=== PATIENT | male | born 1945 | race Caucasian/White ===

== ENCOUNTER 2017-04-02 22:05 | Inpatient (IN) | payer MEDICARE ==
[~2017-04-02] VITALS: Ht 172.7 cm; Wt 70.2 kg
[2017-04-02 22:52] LABS: BASOPHILS % (AUTO) 0.1 % (0.0-2.0); EOSINOPHILS % (AUTO) 0.1 % (1.0-6.0); HEMATOCRIT 44.8 % (41-53); HEMOGLOBIN 14.9 g/dL (13.5-17.5); LYMPHOCYTES # (AUTO) 0.8 K/uL (1.0-4.8); LYMPHOCYTES % (AUTO) 12.3 % (22.0-44.0); MEAN CORPUSCULAR HEMOGLOBIN 30.2 pg (26.0-34.0); MEAN CORPUSCULAR HGB CONC 33.2 G/dL (31.0-37.0); MEAN CORPUSCULAR VOLUME 91 fL (80-100); MONOCYTES # (AUTO) 0.5 K/uL (0.1-1.0); MONOCYTES % (AUTO) 7.8 % (2.0-9.0); NEUTROPHILS # (AUTO) 5.1 K/uL (1.8-7.7); NEUTROPHILS % (AUTO) 79.7 % (40.0-70.0); PLATELET COUNT (AUTO) 203 K/uL (150-450); RED BLOOD CELL COUNT(AUTO) 4.92 MIL/uL (4.50-5.90); RED CELL DISTRIBUTION WIDTH 14.3 % (11.5-14.5); WHITE BLOOD COUNT (AUTO) 6.5 K/uL (4.5-11.0)
[2017-04-02 22:56] LABS: ANION GAP 10 mmol/L (8-16); CALCIUM, TOTAL 9.2 mg/dL (8.8-10.5); CARBON DIOXIDE 24 mmol/L (22-29); CHLORIDE 105 mmol/L (98-107); CREATININE 1.69 mg/dL (0.60-1.30); GLOMERULAR FILTR. RATE CALC 40 mL/min (>60); POTASSIUM 4.3 mmol/L (3.5-5.1); SODIUM SERUM 139 mmol/L (136-145); UREA NITROGEN, BLOOD 23 mg/dL (7-18)
[2017-04-02 23:01] LABS: ALANINE AMINOTRANSFERASE 28 U/L (12-78); ALBUMIN 3.9 g/dL (3.4-5.0); ASPARTATE AMINOTRANSFERASE 17 U/L (15-37); BILIRUBIN,TOTAL 1.1 mg/dL (0.1-1.0); TOTAL PROTEIN, SERUM 8.1 g/dL (6.4-8.2)
[2017-04-03] MEDS ORDERED: GLUCAGON,HUMAN RECOMBINANT 1 MG VIAL IM PRN
[2017-04-03] MEDS ORDERED: HYDROCODONE/ACETAMINOPHEN 5-325 MG TABLET PO PRN ×2
[2017-04-03] MEDS ORDERED: HEPARIN SODIUM,PORCINE 5,000 UNITS/ML VIAL SQ SCH
[2017-04-03] MEDS ORDERED: DEXTROSE 50%-WATER 25 GM/50 ML SYG IVP PRN (00:15)
[2017-04-03] MEDS ORDERED: INSULIN ASPART 100 UNITS/ML SQ PRN ×2 (00:15)
[2017-04-03 00:32] VITALS: BP 120/89
[2017-04-03] MEDS: HEPARIN SODIUM,PORCINE 5,000 UNITS/ML VIAL SQ SCH ×3 (01:15→16:50)
[2017-04-03] MEDS ORDERED: PNEUMOCOCCAL VACCINE POLYVALENT 0.5 ML VIAL [PPSV23] IM ONE (02:30)
[2017-04-03 03:57] VITALS: BP 110/73
[2017-04-03] MEDS: SODIUM CHLORIDE 0.45% 1,000 ML IV SCH ×2 (05:53→16:55)
[2017-04-03 07:02] LABS: GLUCOSE,POINT OF CARE 88 MG/DL (70-110)
[2017-04-03 07:50] VITALS: BP 103/64
[2017-04-03] MEDS: PANTOPRAZOLE SODIUM 40 MG DR TABLET PO SCH (08:45)
[2017-04-03 09:12] LABS: ALANINE AMINOTRANSFERASE 23 U/L (12-78); ALBUMIN 3.2 g/dL (3.4-5.0); ANION GAP 8 mmol/L (8-16); ASPARTATE AMINOTRANSFERASE 17 U/L (15-37); BILIRUBIN,TOTAL 1.2 mg/dL (0.1-1.0); CALCIUM, TOTAL 8.2 mg/dL (8.8-10.5); CARBON DIOXIDE 27 mmol/L (22-29); CHLORIDE 105 mmol/L (98-107); CREATININE 1.08 mg/dL (0.60-1.30); GLOMERULAR FILTR. RATE CALC > 60 mL/min (>60); POTASSIUM 3.6 mmol/L (3.5-5.1); SODIUM SERUM 140 mmol/L (136-145); TOTAL PROTEIN, SERUM 6.8 g/dL (6.4-8.2); UREA NITROGEN, BLOOD 21 mg/dL (7-18)
[2017-04-03 12:03] LABS: GLUCOSE,POINT OF CARE 83 MG/DL (70-110)
[2017-04-03 15:00] VITALS: BP 107/62
[2017-04-03 17:48] LABS: GLUCOSE,POINT OF CARE 93 MG/DL (70-110)
[2017-04-03 20:03] VITALS: BP 91/62
[2017-04-03 22:51] LABS: GLUCOSE COMMENT 1 Received Meds; GLUCOSE,POINT OF CARE 96 MG/DL (70-110)
[2017-04-03 23:49] VITALS: BP 92/62
[2017-04-04] MEDS: HEPARIN SODIUM,PORCINE 5,000 UNITS/ML VIAL SQ SCH ×3 (00:25→16:55)
[2017-04-04] MEDS: SODIUM CHLORIDE 0.45% 1,000 ML IV SCH ×2 (00:29→11:30)
[2017-04-04 05:48] VITALS: BP 101/72
[2017-04-04 07:47] LABS: GLUCOSE,POINT OF CARE 77 MG/DL (70-110)
[2017-04-04 08:11] VITALS: BP 119/63
[2017-04-04] MEDS: PANTOPRAZOLE SODIUM 40 MG DR TABLET PO SCH (09:01)
[2017-04-04] MEDS ORDERED: MAGNESIUM SULFATE 4 GM/WATER 100 ML IV ONE (10:45)
[2017-04-04 11:00] VITALS: BP 112/62
[2017-04-04 11:57] LABS: GLUCOSE,POINT OF CARE 89 MG/DL (70-110)
[2017-04-04 16:16] VITALS: BP 114/60
[2017-04-04 19:25] VITALS: BP 106/70
[2017-04-04 23:07] LABS: GLUCOSE,POINT OF CARE 87 MG/DL (70-110)
[2017-04-04 23:17] VITALS: BP 102/74
[2017-04-05] MEDS: HEPARIN SODIUM,PORCINE 5,000 UNITS/ML VIAL SQ SCH ×4 (00:33→23:23)
[2017-04-05] MEDS: SODIUM CHLORIDE 0.45% 1,000 ML IV SCH ×2 (00:37→18:46)
[2017-04-05 04:38] VITALS: BP 110/66
[2017-04-05 07:26] VITALS: BP 117/76
[2017-04-05] MEDS: PANTOPRAZOLE SODIUM 40 MG DR TABLET PO SCH (08:17)
[2017-04-05 11:32] VITALS: BP 94/66
[2017-04-05 14:12] LABS: GLUCOSE,POINT OF CARE 95 MG/DL (70-110)
[2017-04-05 14:12] LABS: GLUCOSE,POINT OF CARE 78 MG/DL (70-110)
[2017-04-05 15:30] VITALS: BP 100/65
[2017-04-05 17:43] LABS: GLUCOSE,POINT OF CARE 82 MG/DL (70-110)
[2017-04-05 19:52] VITALS: BP 101/67
[2017-04-05 20:22] LABS: GLUCOSE,POINT OF CARE 104 MG/DL (70-110)
[2017-04-05 23:35] VITALS: BP 105/65
[2017-04-06] MEDS: SODIUM CHLORIDE 0.45% 1,000 ML IV SCH ×3 (03:30→16:10)
[2017-04-06 05:08] VITALS: BP 117/78
[2017-04-06 06:32] LABS: GLUCOSE,POINT OF CARE 77 MG/DL (70-110)
[2017-04-06 08:08] VITALS: BP 124/63
[2017-04-06] MEDS: HEPARIN SODIUM,PORCINE 5,000 UNITS/ML VIAL SQ SCH ×2 (09:15→16:41)
[2017-04-06] MEDS: PANTOPRAZOLE SODIUM 40 MG DR TABLET PO SCH (09:15)
[2017-04-06 11:45] VITALS: BP 99/60
[2017-04-06 12:32] LABS: GLUCOSE,POINT OF CARE 81 MG/DL (70-110)
[2017-04-06 16:04] VITALS: BP 115/77
[2017-04-06 17:23] LABS: BASOPHILS % (AUTO) 0.5 % (0.0-2.0); EOSINOPHILS % (AUTO) 2.5 % (1.0-6.0); HEMATOCRIT 39.6 % (41-53); HEMOGLOBIN 13.3 g/dL (13.5-17.5); LYMPHOCYTES # (AUTO) 1.2 K/uL (1.0-4.8); LYMPHOCYTES % (AUTO) 36.2 % (22.0-44.0); MEAN CORPUSCULAR HEMOGLOBIN 30.2 pg (26.0-34.0); MEAN CORPUSCULAR HGB CONC 33.5 G/dL (31.0-37.0); MEAN CORPUSCULAR VOLUME 90 fL (80-100); MONOCYTES # (AUTO) 0.4 K/uL (0.1-1.0); MONOCYTES % (AUTO) 10.7 % (2.0-9.0); NEUTROPHILS # (AUTO) 1.7 K/uL (1.8-7.7); NEUTROPHILS % (AUTO) 50.1 % (40.0-70.0); PLATELET COUNT (AUTO) 197 K/uL (150-450); RED CELL DISTRIBUTION WIDTH 13.8 % (11.5-14.5); WHITE BLOOD COUNT (AUTO) 3.3 K/uL (4.5-11.0)
[2017-04-06 17:34] LABS: ANION GAP 6 mmol/L (8-16); CALCIUM, TOTAL 8.5 mg/dL (8.8-10.5); CARBON DIOXIDE 29 mmol/L (22-29); CHLORIDE 106 mmol/L (98-107); CREATININE 1.06 mg/dL (0.60-1.30); GLOMERULAR FILTR. RATE CALC > 60 mL/min (>60); POTASSIUM 4.1 mmol/L (3.5-5.1); SODIUM SERUM 141 mmol/L (136-145); UREA NITROGEN, BLOOD 17 mg/dL (7-18)
[2017-04-06 17:39] LABS: ALANINE AMINOTRANSFERASE 64 U/L (12-78); ASPARTATE AMINOTRANSFERASE 62 U/L (15-37); BILIRUBIN,TOTAL 0.7 mg/dL (0.1-1.0); TOTAL PROTEIN, SERUM 6.5 g/dL (6.4-8.2)
[2017-04-06 18:47] LABS: GLUCOSE,POINT OF CARE 100 MG/DL (70-110)
[2017-04-06 20:11] VITALS: BP 102/69
[2017-04-07 00:20] VITALS: BP 106/64
[2017-04-07 01:57] LABS: GLUCOSE COMMENT 1 Received Meds; GLUCOSE,POINT OF CARE 85 MG/DL (70-110)
[2017-04-07] MEDS: HEPARIN SODIUM,PORCINE 5,000 UNITS/ML VIAL SQ SCH ×3 (03:02→16:34)
[2017-04-07 05:00] VITALS: BP 121/86
[2017-04-07 07:37] VITALS: BP 123/82
[2017-04-07] MEDS: SODIUM CHLORIDE 0.45% 1,000 ML IV SCH (09:30)
[2017-04-07] MEDS: PANTOPRAZOLE SODIUM 40 MG DR TABLET PO SCH (09:56)
[2017-04-07 11:11] LABS: GLUCOSE COMMENT 1 Received Meds; GLUCOSE,POINT OF CARE 72 MG/DL (70-110)
[2017-04-07 11:27] LABS: GLUCOSE,POINT OF CARE 82 MG/DL (70-110)
[2017-04-07 15:47] VITALS: BP 107/75
[2017-04-07 19:41] VITALS: BP 105/68
[2017-04-07 20:12] LABS: GLUCOSE,POINT OF CARE 81 MG/DL (70-110)
[2017-04-07 20:40] VITALS: BP 112/75
== END 2017-04-07 20:45 | DRG 641 ==
LOC: EEVIPCON 22:09 → EMS 22:09 → 6N 04-03 00:08
PROVIDERS: ADMIT Internal Medicine; ATTEND Internal Medicine
DX: E86.0 Dehydration (principal); E44.1 Mild protein-calorie malnutrition; H54.8 Legal blindness, as defined in USA; S00.10XA Contusion of unspecified eyelid and periocular area, initial encounter; W19.XXXA Unspecified fall, initial encounter; N28.9 Disorder of kidney and ureter, unspecified; Z91.81 History of falling; Y93.89 Activity, other specified; Y92.009 Unspecified place in unspecified non-institutional (private) residence as the place of occurrence of the external cause; Y99.8 Other external cause status; Z68.23 Body mass index [BMI] 23.0-23.9, adult; Z85.841 Personal history of malignant neoplasm of brain
CPT/HCPCS: 82962; 87081; 97162; 99285; G0480; J1644; J3475